=== PATIENT | male | born 1965 | race Caucasian/White ===

== ENCOUNTER 2016-07-10 00:06 | Emergency (ER) | payer MEDICAID ==
[~2016-07-10] VITALS: Ht 175.3 cm; Wt 121.0 kg
[2016-07-10 00:14] VITALS: BP 157/100; PULSE 64; RESP 20; TEMP 99.2
[2016-07-10] MEDS ORDERED: NEBI20 PO (01:45)
[2016-07-10] MEDS ORDERED: PROZ20CA11 PO (01:45)
[2016-07-10] MEDS ORDERED: ATOR10TA15 PO (01:45)
[2016-07-10] MEDS ORDERED: TRIBTAB PO (01:45)
[2016-07-10] MEDS ORDERED: ASPI81CH25 PO (01:45)
[2016-07-10] MEDS ORDERED: XANA1TAB2 PO (01:45)
[2016-07-10] MEDS ORDERED: METF500T PO (01:45)
[2016-07-10 02:00] VITALS: BP 131/70; PULSE 74; RESP 16; TEMP 98.5
--- NOTE | 2016-07-10 02:10 | PD ---
HPI Chief Complaint: Headache Time Seen by Provider: 01:58 Travel History International Travel<30 days: No Contact w/Intl Traveler<30days: No Traveled to known affect area: No History of Present Illness HPI The patient is a 51-year-old male that has had a global headache for 3 days. He states it starts bifrontally then goes to the back. He was in a hospital in [place] yesterday and his headache was severe at that time. He states he also has vertigo when he stands up and the headache gets worse. He does have nausea without vomiting. He denies any fever. He denies any focal neurologic change. The patient is on the road, driving, and he cannot take narcotic analgesics. PFSH Past Medical History Hx Anticoagulant Therapy: Yes (asa) Anxiety: Yes Depression: Yes Diabetes: Yes Patient Takes Glucophage: Yes Tetanus Vaccination: < 5 Years Influenza Vaccination: No Past Surgical History Surgical History: No Previous Surgery Social History Alcohol Use: No Tobacco Use: Yes Allergies-Medications (Allergen,Severity, Reaction): Coded Allergies: No Known Allergies (Unverified , 07/10/16) Reported Meds & Prescriptions Reported Meds & Active Scripts Active Reported Aspirin Low Strength (Aspirin) 81 Mg Chew 162 Mg PO BID Atorvastatin (Atorvastatin Calcium) 10 Mg Tab 10 Mg PO HS Prozac (Fluoxetine HCl) 20 Mg Cap 20 Mg PO TID Xanax (Alprazolam) 1 Mg Tab 1 Mg PO Q6H PRN Tribenzor (Gjfomvbsly-Gmvjvephpt-Kkhiuxjeikdajlygswf) 20-5-12.5 mg Tab 1 Tab PO DAILY Bystolic (Nebivolol) 20 Mg Tab 20 Mg PO DAILY Metformin (Metformin HCl) 500 Mg Tab 500 Mg PO BIDPC With meals Review of Systems Except as stated in HPI: all other systems reviewed are Neg Physical Exam Narrative GENERAL: The patient is alert, oriented 3 in moderate apparent distress with his headache. His vital signs show temperature 99.2 and blood pressure 157/100 but are otherwise normal. SKIN: Warm and dry. HEAD: Atraumatic. Normocephalic. EYES: Pupils equal and round. No scleral icterus. No injection or drainage. ENT: No nasal bleeding or discharge. Mucous membranes pink and moist. NECK: Trachea midline. No JVD. There is no meningismus and the patient can flex his neck fully without any hesitation so that the chin touches the chest. CARDIOVASCULAR: Regular rate and rhythm. No murmur appreciated. RESPIRATORY: No accessory muscle use. Clear to auscultation. Breath sounds equal bilaterally. GASTROINTESTINAL: Abdomen soft, non-tender, nondistended. Hepatic and splenic margins not palpable. MUSCULOSKELETAL: No obvious deformities. No clubbing. No cyanosis. No edema. NEUROLOGICAL: Awake and alert. No obvious cranial nerve deficits. Motor grossly within normal limits. Normal speech. PSYCHIATRIC: Appropriate mood and affect; insight and judgment normal. Data Data Last Documented VS Vital Signs Date Time Temp Pulse Resp B/P Pulse Ox O2 Delivery O2 Flow Rate FiO2 07/10/16 03:10 Room Air 07/10/16 03:10 74 17 140/74 97 07/10/16 02:[address] Brain W/O Iv Contrast(Rout) (07/10/16 02:05) Complete Blood Count With Diff (07/10/16 02:05) Basic Metabolic Panel (Bmp) (07/10/16 02:05) Ua Includes Microscopic (07/10/16 02:05) Magnesium (Mg) (07/10/16 02:05) Ondansetron Inj (Zofran Inj) (07/10/16 03:00) Ketorolac Inj (Toradol Inj) (07/10/16 03:00) Labs Laboratory Tests Test 07/10/16 02:20 White Blood Count 9.5 TH/MM3 Red Blood Count 5.63 MIL/MM3 Hemoglobin 15.0 GM/DL Hematocrit 46.2 % Mean Corpuscular Volume 82.1 FL Mean Corpuscular Hemoglobin 26.7 PG Mean Corpuscular Hemoglobin 32.5 % Concent Red Cell Distribution Width 12.8 % Platelet Count 315 TH/MM3 Mean Platelet Volume 7.9 FL Neutrophils (%) (Auto) 54.2 % Lymphocytes (%) (Auto) 34.3 % Monocytes (%) (Auto) 8.4 % Eosinophils (%) (Auto) 2.6 % Basophils (%) (Auto) 0.5 % Neutrophils # (Auto) 5.2 TH/MM3 Lymphocytes # (Auto) 3.3 TH/MM3 Monocytes # (Auto) 0.8 TH/MM3 Eosinophils # (Auto) 0.2 TH/MM3 Basophils # (Auto) 0.0 TH/MM3 CBC Comment DIFF FINAL Differential Comment Urine Color YELLOW Urine Turbidity CLEAR Urine pH 6.0 Urine Specific [place] 1.013 Urine Protein NEG mg/dL Urine Glucose (UA) 100 mg/dL Urine Ketones NEG mg/dL Urine Occult Blood NEG Urine Nitrite NEG Urine Bilirubin NEG Urine Leukocyte Esterase NEG Urine RBC 0-2 /hpf Urine WBC 0-2 /hpf Urine Squamous Epithelial 0-5 /hpf Cells Urine Bacteria NONE /hpf Sodium Level 136 MEQ/L Potassium Level 3.5 MEQ/L Chloride Level 97 MEQ/L Carbon Dioxide Level 29.7 MEQ/L Anion Gap 9 MEQ/L Blood Urea Nitrogen 15 MG/DL Creatinine 1.10 MG/DL Estimat Glomerular Filtration 70 ML/MIN Rate Random Glucose 204 MG/DL Calcium Level 8.8 MG/DL Magnesium Level 2.2 MG/DL [facility] Medical Decision Making Medical Screen Exam Complete: Yes Emergency Medical Condition: Yes Medical Record Reviewed: Yes Interpretation(s) The urine shows 100 glucose but is otherwise normal and culture is not indicated. The CBC is completely normal. The basic metabolic profile shows a glucose of 204, GFR of 70 but is otherwise normal. The magnesium level was normal. The CT scan of the brain shows no acute disease. Differential Diagnosis Tension headache, electrolyte disorder, migraine headaches, tension/migraine combination headache, normal pressure hydrocephalus, subarachnoid hemorrhage highly unlikely, anemia Narrative Course The patient appears to have a tension/migraine combination headache. He got virtually complete relief with Toradol and Zofran and I will prescribe Motrin and Zofran for him to drive. He needs to follow-up with a neurologist or his primary care physician when he gets back home. Procedures EKG Prior to Arrival: No EKG Not Completed: EKG Not Medically Necessary Diagnosis Primary Impression: Migraine headache Additional Impression: Tension headache Additional Instructions: Follow-up with your primary care physician or a neurologist when you get back home. Your primary care physician you have a lot of work to do with this diabetes. Med/Other Pt SpecificInfo: Prescription(s) given Scripts Ondansetron (Zofran)4 Mg Tab4 Mg PO Q6HR PRN (NAUSEA OR VOMITING) #30 TAB Ref 0 Prov:Bartolome Short MD 07/10/16 Ibuprofen 800 Mg [id number] Mg PO TID #45 TAB Ref 0 Prov:Bartolome Short MD 07/10/16 Disposition: 01 DISCHARGE HOME Condition: Stable Bartolome Short MD Jul 10, 2016 02:10
[2016-07-10 02:31] LABS: AUTOMATED NEUTROPHIL # 5.2 TH/MM3 (1.8-7.7); BASOPHIL % 0.5 % (0.0-2.0); EOSINOPHIL # 0.2 TH/MM3 (0-0.4); EOSINOPHIL % 2.6 % (0.0-4.0); HEMATOCRIT 46.2 % (39.0-51.0); HEMO FLAGS DIFF FINAL; LYMPH % 34.3 % (9.0-44.0); LYMPHOCYTE # 3.3 TH/MM3 (1.0-4.8); MEAN CELL VOLUME 82.1 FL (80.0-100.0); MEAN CORPUSCULAR HEMOGLOBIN 26.7 PG (27.0-34.0); MEAN CORPUSCULAR HGB CONC 32.5 % (32.0-36.0); MONO % 8.4 % (0.0-8.0); NEUT % 54.2 % (16.0-70.0); PLATELET COUNT 315 TH/MM3 (150-450); RED BLOOD COUNT 5.63 MIL/MM3 (4.50-5.90); RED CELL DISTRIBUTION WIDTH 12.8 % (11.6-17.2); WHITE BLOOD COUNT 9.5 TH/MM3 (4.0-11.0)
[2016-07-10 02:36] LABS: BLOOD, URINE NEG (NEG); GLUCOSE,URINE 100 mg/dL (NEG); KETONE, URINE NEG (NEG); NITRITE,URINE NEG (NEG)
[2016-07-10 02:40] LABS: POTASSIUM 3.5 MEQ/L (3.5-5.1)
[2016-07-10 02:43] LABS: BICARBONATE 29.7 MEQ/L (21.0-32.0); MAGNESIUM 2.2 MG/DL (1.5-2.5)
[2016-07-10 02:44] LABS: URINE COLOR YELLOW (YELLW/STRAW)
[2016-07-10 02:45] LABS: RBC, URINE 0-2 /hpf (0-3); SQUAMOUS EPITHELIAL CELL URINE 0-5 /hpf (0-5); WBC, URINE 0-2 /hpf (0-5)
[2016-07-10] MEDS ORDERED: KETOROLAC TROMETHAMINE 60 MG/2 ML (IM) VIAL IVP ONE (03:00)
[2016-07-10] MEDS ORDERED: ONDANSETRON HCL 4 MG/2 ML VIAL IV ONE (03:00)
[2016-07-10 03:10] VITALS: BP 140/74; PULSE 74; RESP 17; O2SAT 97
--- NOTE | 2016-07-10 03:14 | RADHPO ---
EXAM DATE/TIME: 07/10/2016 02:13 [facility] COMPARISON: No previous studies available for comparison. INDICATIONS : Cephalgia. RADIATION DOSE: 64.90 CTDIvol (mGy) MEDICAL HISTORY : Diabetes mellitus type 2. SURGICAL HISTORY : None. ENCOUNTER: Initial ACUITY: 3 days PAIN SCALE: 8/10 LOCATION: cranial TECHNIQUE: Multiple contiguous axial images were obtained of the head. Using automated exposure control and adj ustment of the mA and/or kV according to patient size, radiation dose was kept as low as reasonably a chievable to obtain optimal diagnostic quality images. FINDINGS: CEREBRUM: The ventricles are normal for age. No evidence of midline shift, mass lesion, hemorrhage or acute in farction. No extra-axial fluid collections are seen. POSTERIOR FOSSA: The cerebellum and brainstem are intact. The 4th ventricle is midline. The cerebellopontine angle i s unremarkable. EXTRACRANIAL: The visualized portion of the orbits is intact. SKULL: The calvaria is intact. No evidence of skull fracture. CONCLUSION: No acute disease. Agusto Ly MD on July 10, 2016 at 3:12 Board Certified Radiologist. This report was verified electronically.
[2016-07-10 04:17] VITALS: BP 133/70; RESP 17; TEMP 98.6
[2016-07-10] MEDS ORDERED: IBUP800T23 PO (04:17)
[2016-07-10] MEDS ORDERED: ZOFR4TAB PO (04:17)
== END 2016-07-10 04:31 | disposition home or self-care (01) ==
LOC: PHED 00:06
DX: G44.209 Tension-type headache, unspecified, not intractable (principal); G43.909 Migraine, unspecified, not intractable, without status migrainosus; F41.8 Other specified anxiety disorders; E11.9 Type 2 diabetes mellitus without complications; Z79.4 Long term (current) use of insulin; Z72.0 Tobacco use; Z79.82 Long term (current) use of aspirin
CPT/HCPCS: 70450; 80048; 81001; 83735; 85025; 96374; 96375; 99284; J1885; J2405